=== PATIENT | male | born 1975 | race Two or more races ===

== ENCOUNTER 2024-08-28 10:09 | Outpatient (CLI) | payer OTHER | END 2024-08-28 10:23 | disposition home or self-care (01) | LOC: RAD 10:09 | PROVIDERS: ATTEND Specialist | DX: S70.01XA Contusion of right hip, initial encounter (principal); X58.XXXA Exposure to other specified factors, initial encounter; Y93.9 Activity, unspecified; Y92.9 Unspecified place or not applicable; Y99.9 Unspecified external cause status ==